=== PATIENT | female | born 1965 | race Caucasian/White ===

== ENCOUNTER 2017-12-15 18:11 | Emergency (ER) | payer MEDICAID ==
[~2017-12-15] VITALS: Ht 157.5 cm; Wt 61.0 kg
[2017-12-15] MEDS ORDERED: KETOROLAC 30MG/ML VIAL IM ONE (23:15)
[2017-12-16 02:05] VITALS: BP 127/73
== END 2017-12-16 02:23 | disposition home or self-care (01) ==
LOC: ER 20:14
DX: M25.451 Effusion, right hip (principal); R10.2 Pelvic and perineal pain; Z85.850 Personal history of malignant neoplasm of thyroid
CPT/HCPCS: 72170; 72192; 93971; 96372; 99284; J1885; Z7610

== ENCOUNTER 2019-12-08 09:41 | Emergency (ER) | payer MEDICAID ==
[~2019-12-08] VITALS: Ht 167.6 cm; Wt 62.2 kg
[2019-12-08 09:47] VITALS: BP 118/70
[2019-12-08] MEDS ORDERED: LEVO25TA7 PO (09:55)
[2019-12-08] MEDS ORDERED: ONDANSETRON 4MG ODT PO STA (10:20)
[2019-12-08] MEDS ORDERED: ACETAMINOPHEN 325MG TABLET PO STA (10:20)
[2019-12-08 10:47] LABS: HEMATOCRIT. 40.1 % (36.0-48.0); HEMOGLOBIN. 14.1 g/dL (12.0-16.0); MEAN CORPUSCULAR HEMOGLOBIN 31.5 pg (28.0-32.0); MEAN CORPUSCULAR VOLUME 89.7 fL (81.0-99.0); MEAN PLATELET VOLUME 7.8 fl (7.4-10.4); PLATELET 271 x1000/uL (130-400); RED BLOOD CELL COUNT 4.47 mill/uL (4.2-5.4); RED CELL DISTRIBUTION WIDTH 12.9 % (11.6-14.6)
[2019-12-08 10:53] LABS: CHLORIDE 103 mEq/L (98-107)
[2019-12-08 10:54] LABS: PROTHROMBIN TIME 10.6 sec (9.6-11.0)
[2019-12-08 11:27] LABS: PLATELET ESTIMATE NORMAL
== END 2019-12-08 12:03 | disposition home or self-care (01) ==
LOC: ER 09:41
DX: R10.9 Unspecified abdominal pain (principal); E03.9 Hypothyroidism, unspecified; Z90.49 Acquired absence of other specified parts of digestive tract
CPT/HCPCS: 36415; 80053; 81025; 83690; 85025; 85610; 99283; Q0162